=== PATIENT | female | born 1985 | race Caucasian/White ===

== ENCOUNTER 2016-09-10 19:45 | Emergency (ER) | payer OTHER ==
[2016-09-10 20:01] VITALS: BP 142/88; PULSE 76; TEMP 98; BMI 21.6
--- NOTE | 2016-09-10 21:22 | PDOC ---
History of Present Illness - General Chief Complaint: Pain Stated Complaint: R WRIST PAIN Time Seen by Provider: 09/10/16 20:48 - History of Present Illness Initial Comments: 09/10/16 21:20 CHIEF COMPLAINT: R wrist pain HISTORY OF PRESENT ILLNESS: 31 yo F with no PMH presents to fast track with pain to R wrist x 3 days. Patient reports that she fell in the shower on her outstretched hand and has had worsening pain since. Patient denies LOC or injury to any other part of her body. PAST MEDICAL HISTORY: Denies past medical history FAMILY HISTORY: Denies SOCIAL HISTORY: Denies tobacco, alcohol, illicit drug use. SURGICAL HISTORY: Denies ALLERGIES: fish products REVIEW OF SYSTEMS General/Constitutional: Denies fever or chills. Denies weakness, weight change. HEENT: Denies change in vision. Denies ear pain or discharge. Denies sore throat. Cardiovascular: Denies chest pain or shortness of breath. Respiratory: Denies cough, wheezing, or hemoptysis. Gastrointestinal: Denies nausea, vomiting, diarrhea or constipation. Denies rectal bleeding. Genitourinary: Denies dysuria, frequency, or change in urination. Musculoskeletal: R wrist pain. Denies neck or back pain. Skin and breasts: Denies rash or easy bruising. Neurologic: Denies headache, vertigo, loss of consciousness, or loss of sensation. PHYSICAL EXAM General Appearance: Well-appearing, appropriately dressed. No apparent distress , no intoxication. HEENT: EOMI, PERRLA No photophobia, scleral icterus. Neck: Supple. Trachea midline. No tenderness, rigidity, carotid bruit, stridor , lymphadenopathy, or thyromegaly. Respiratory/Chest: Lungs CTAB. Cardiovascular: RRR. S1, S2. Musculoskeletal/Extremities: Limited ROM to R wrist secondary to pain. Tenderness to lateral aspect of R wrist. No ecchymosis, deformity, swelling noted. Normal inspection. FROM of all extremities, normal capillary refill. Pelvis Stable. No CVA tenderness. No tenderness to extremities, pedal edema, swelling, erythema or deformity. Integumentary: Appropriate color, dry, warm. 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 Fully oriented, alert. Appropriate mood/affect. Motor strength 5/5. No appreciable EOM palsy, facial droop or sensory deficit. Past History - Past Medical History Allergies/Adverse Reactions: Allergies Allergy/AdvReac Type Severity Reaction Status Date / Time fish derived Allergy Verified 09/10/16 20:01 Home Medications: Ambulatory Orders Oxycodone HCl/Acetaminophen [Percocet 5-325 mg Tablet] 1 tab PO Q6H PRN #16 tablet MDD 4 09/10/16 Other medical history: denies - Surgical History Appendectomy: Yes - Psycho/Social/Smoking Cessation Hx Suicidal Ideation: No Smoking History: Never smoked *Physical Exam - Vital Signs Last Vital Signs Temp Pulse Resp BP Pulse Ox 98 F 76 18 142/88 99 09/10/16 19:57 09/10/16 19:57 09/10/16 19:57 09/10/16 19:57 09/10/16 19:57 ED Treatment Course - RADIOLOGY Radiology Studies Ordered: Category Date Time Status WRIST W/HAND-RIGHT* [RAD] Stat Radiology 09/10/16 21:12 Ordered Medical Decision Making - Medical Decision Making 09/10/16 21:22 31 yo F presents to fast track with R wrist pain. -urine preg -R wrist x-ray -60 mg Toradol X-ray positive for closed fracture of distal radius. Wrist splinted with orthoglass, orthopedic referral provided. Advised patient to take medication as prescribed and follow up with orthopedics within the next 2 days. Advised patient of signs and symptoms for return to ED. Patient verbalized understanding and agrees to plan. *DC/Admit/Observation/Transfer Diagnosis at time of Disposition: Wrist fracture, right Qualifiers: Encounter type: initial encounter Fracture type: closed Qualified Code(s): S62.101A - Fracture of unspecified carpal bone, right wrist, initial encounter for closed fracture - Discharge Dispostion Disposition: HOME Condition at time of disposition: Stable Admit: No - Prescriptions Prescriptions: Oxycodone HCl/Acetaminophen [Percocet 5-325 mg Tablet] 1 tab PO Q6H PRN #16 tablet MDD 4 PRN Reason: Pain - Referrals Referrals: Murphy Azul MD [Staff Physician] - - Patient Instructions Additional Instructions: Please take medication as prescribed. Do NOT drive or operate machinery while taking Percocet. You must follow up with orthopedics within the next TWO days. If you experience any loss of sensation, numbness, or tingling to your hand or wrist, or your hand has any change in color or becomes cold, return to the ER immediately.
[2016-09-10] MEDS ORDERED: KETOROLAC TROMETHAMINE 60 MG/2 ML VIAL IM ONE (21:44)
[2016-09-10] MEDS ORDERED: KETOROLAC TROMETHAMINE 60 MG/2 ML VIAL ONE (21:46)
== END 2016-09-10 22:38 | disposition home or self-care (01) ==
LOC: JERFT 19:45
PROC: 2W3CX1Z Immobilization of Right Lower Arm using Splint (ICD-10-PCS; principal; 2016-09-10)
DX: S52.591A Other fractures of lower end of right radius, initial encounter for closed fracture (principal); W18.2XXA Fall in (into) shower or empty bathtub, initial encounter; Y93.E1 Activity, personal bathing and showering; Y92.031 Bathroom in apartment as the place of occurrence of the external cause
CPT/HCPCS: 29125; 73110-TC-RT; 73130-TC-RT; 84703; 99281-25